=== PATIENT | female | born 1985 | race African-American/Black ===

== ENCOUNTER 2025-06-04 07:59 | Outpatient (RCR) | payer BC, SELFPAY ==
[2025-06-04 08:09] VITALS: BMI 37.2
[2025-06-04 08:15] VITALS: BMI 37.2
== END 2025-08-19 13:58 | disposition home or self-care (01) ==
LOC: ANHDMC 07:59
PROVIDERS: PCP Nurse Practitioner; Visit Provider Nurse Practitioner
DX: E11.59 Type 2 diabetes mellitus with other circulatory complications (principal); Z71.3 Dietary counseling and surveillance
CPT/HCPCS: 97802